=== PATIENT | female | born 1985 | race Caucasian/White ===

== ENCOUNTER 2025-05-15 08:43 | Day surgery (SDC) | payer BC ==
--- NOTE | 2025-05-15 08:16 | HP ---
HISTORY OF PRESENT ILLNESS: The patient is a 39-year-old who had some bloating and diarrhea in the past year, worse with spicy or fatty foods. Ultrasound with no stone and HIDA scan showed severe dyskinesia, aches at times. PAST MEDICAL HISTORY: Some headaches and migraines in the past. PAST SURGICAL HISTORY: None. FAMILY HISTORY: Lung cancer and diabetes. SOCIAL HISTORY: Former smoker. Occasional alcohol use. MEDICATIONS: Nurtec, probiotic, and oregano. ALLERGIES: No known drug allergies. REVIEW OF SYSTEMS: Twelve systems reviewed. No chest pain or palpitations. Other systems negative or noncontributory as above and per preadmission questionnaire. PHYSICAL EXAMINATION: GENERAL: No acute distress. VITAL SIGNS: Height 5 feet 4 inches. BMI 37.76. HEENT: Sclerae nonicteric. NECK: No JVD. CHEST: Equal excursion, nonlabored breathing. CARDIOVASCULAR: Regular rate and rhythm. ABDOMEN: Soft. EXTREMITIES: No cyanosis or edema. NEUROLOGIC: Alert and oriented. Moving all extremities symmetrically. PSYCHIATRIC: Appropriate mood and affect. SKIN: Dry. IMPRESSION: Abnormal HIDA scan, question severe dyskinesia, acute exacerbation of chronic cholecystitis. Recommend cholecystectomy. Otherwise, risks of cholecystectomy including, but not limited to, bleeding and infection; risks of trocar injury or hernia; risks of bowel, bladder, or blood vessel issues or injury; risk of bile leak, bile duct injury, retained stone or sludge possibly requiring ERCP or open procedure; risks of anesthesia, DVT, PE, pneumonia, but not limited to; possibly no improvement of symptoms, possibly requiring endoscopy, other studies or procedures; general risk of anesthesia or sedation, but not limited to. Otherwise, we will proceed with outpatient general anesthetic laparoscopic cholecystectomy, possible open. Otherwise, continue medications for headaches.
[~2025-05-15 08:43] MED LIST: CEFAZOLIN SODIUM ONE; Lactated Ringers 1,000 ML IV ONE
[2025-05-15 08:59] VITALS: RESP 18
[2025-05-15] MEDS: Lactated Ringers 1,000 ML IV SCH (09:02)
[2025-05-15] MEDS: FLAGYL 500 MG IVPB 500 MG/100 ML BAG IV SCH (09:02)
[2025-05-15 09:04] LABS: HCG URINE TEST NEGATIVE (NEGATIVE)
[2025-05-15] MEDS ORDERED: Sensorcaine 0.25% 10 ML ONE (10:22)
[2025-05-15] MEDS ORDERED: Lactated Ringers 1,000 ML IV ONE (10:22)
[2025-05-15] MEDS ORDERED: Versed 2 MG/2 ML Injection ONE (10:49)
[2025-05-15] MEDS ORDERED: ROCURONIUM BROMIDE IV ONE (10:49)
[2025-05-15] MEDS ORDERED: SUBLIMAZE 100 MCG/2 ML ONE ×3 (10:49→11:31)
[2025-05-15] MEDS ORDERED: propofoL IV ONE (10:49)
[2025-05-15] MEDS ORDERED: Xylocaine-Mpf 2% 5 Ml Vial ONE (11:03)
[2025-05-15] MEDS ORDERED: TORAdol 30 mg Injection ONE (11:36)
[2025-05-15] MEDS ORDERED: BRIDION 200MG/2ML IV ONE (11:36)
[2025-05-15] MEDS ORDERED: Zofran 4 MG/2 ML VIAL ONE (12:44)
[2025-05-15 12:57] VITALS: TEMP 96.8
[2025-05-15 13:08] VITALS: BP 117/80; PULSE 62; O2SAT 97
--- NOTE | 2025-05-16 11:49 | OP ---
SURGERY DATE/TIME: 05/15/2025 [id number] PREOPERATIVE DIAGNOSIS: Bloating, loose stools, history of abnormal HIDA scan, radiologist questioned severe biliary dyskinesia, question acute exacerbation of chronic cholecystitis. POSTOPERATIVE DIAGNOSIS: Bloating, loose stools, history of abnormal HIDA scan, radiologist questioned severe biliary dyskinesia, question acute exacerbation of chronic cholecystitis. PROCEDURE: Laparoscopic cholecystectomy. SURGEON: Damion Burrell MD INDICATIONS: History includes bloating, loose stools, history of abnormal HIDA scan, radiologist questioned severe biliary dyskinesia, question acute exacerbation of chronic cholecystitis. She was offered cholecystectomy. Risks explained in detail, not limited to. Consent obtained. DESCRIPTION OF PROCEDURE AND FINDINGS: Patient was taken to the operating room, general anesthesia induced. She was prepped and draped in usual sterile fashion. After official time-out and no disagreement in planned procedure, transverse incision made at supraumbilical area. Fascia grasped, pulled upward, Veress needle inserted and tested with saline, insufflated from an opening pressure of 0 to 15. A 5 mm bladeless port and camera inserted without difficulty followed by two 5 mm right upper quadrant ports and an 11 mm epigastric port. Gallbladder had some mild chronic inflammation and omentum up against it and the small bowel. It was dissected from posterolateral to anterior fashion slowly and carefully. Cystic duct/infundibular area slowly, carefully dissected it a critical view was obtained anteriorly and posteriorly. Once this was accomplished, cystic duct and cystic artery clipped x3 and divided in usual fashion. Gallbladder slowly and carefully dissected free from its dense attachments to the liver bed staying directly along the gallbladder wall, clipping an additional oozing side branch off the cystic artery and vein directly on the gallbladder wall as needed. Just prior to releasing the final attachments to the anterior edge of the liver, liver bed reinspected. Clips noted in place to cystic duct and cystic artery stumps. There was some minimal ooze from the anterior edge of the liver that was controlled with very brief burst of pinpoint cautery. Good hemostasis noted. Clips noted to be in place on cystic duct and cystic artery stumps. It was felt there was no benefit of drain placement. Gallbladder released from final attachments to anterior edge of the liver, placed in provided sac, pulled up and out the epigastrium where it was slight spread with the clamp and the gallbladder bag pulled free. The fascial defect 11 size closed with puncture closure device with #1 Vicryl. Copious amount of irrigation accomplished lateral to the liver and subhepatic space until clear. Clips noted to be in place on cystic duct and cystic artery stumps. No signs of any active bleeding or bile leakage. [place] there was no benefit of drain placement. Pneumoperitoneum decompressed. Wound was irrigated out. Skin incision closed with 4-0 Vicryl. Steri-Strips and sterile dressing applied. Patient tolerated procedure well. There were no immediate complications. Findings discussed with the family or friend out in the waiting area.
== END 2025-05-15 13:18 | disposition home or self-care (01) ==
LOC: SDC 08:43
PROVIDERS: ATTEND Surgery
DX: R14.0 Abdominal distension (gaseous) (principal); R19.7 Diarrhea, unspecified; K82.8 Other specified diseases of gallbladder; K81.1 Chronic cholecystitis